=== PATIENT | female | born 1945 | race Caucasian/White ===

== ENCOUNTER 2019-03-31 10:47 | Inpatient (IN) ==
--- NOTE | 2019-03-25 10:07 | EKG Report ---
Test Performed on : 03/25/2019 10:01:43 AM Test Reason : PAT Blood Pressure : / mmHG Vent. Rate : 069 BPM Atrial Rate : 069 BPM P-R Int : 184 ms QRS Dur : 094 ms QT Int : 408 ms P-R-T Axes : 066 077 069 degrees QTc Int : 437 ms Normal sinus rhythm. Normal ECG No previous ECGs available Unconfirmed Result
[2019-03-25 10:20] LABS: HEMATOCRIT 38.4 % (37.0-47.0); MCH 28.5 PG (27-31); MCHC 31.3 g/dL (33-37); MCV 91.2 FL (81-99); MPV 10.4 FL (7.4-10.4); RBC 4.21 XMIL (4.2-5.4); RDW 13.5 % (11.5-14.5); WBC 9.06 X1000 (4.8-10.8)
[2019-03-25 11:13] LABS: AGAP 8; BUN 13 mg/dL (8-22); CALCIUM 9.1 mg/dL (8.8-10.2); CHLORIDE 103 mmol/L (98-107); COSMO 277; CREATININE 0.9 mg/dL (0.5-0.9); ESTIMATED GFR > 60; GLUCOSE 93 mg/dL (70-104); POTASSIUM 4.8 mmol/L (3.5-5.1); SODIUM 139 mmol/L (136-145); TCO2 28 mmol/L (25-35)
[2019-03-31] MEDS ORDERED: PEPCID ONE (11:16)
[2019-03-31] MEDS ORDERED: REGLAN ONE (11:16)
[2019-03-31] MEDS ORDERED: KEFZOL 1 GM/D5W 1 GM/50 ML IVPB ONE (11:16)
[2019-03-31] MEDS ORDERED: LR 1,000 ML ONE ×2 (11:16→12:26)
[2019-03-31] MEDS ORDERED: XYLOCAINE 1%/EPI 1:100,000 ONE (12:25)
[2019-03-31] MEDS ORDERED: ROBINUL ONE ×3 (12:28→14:02)
[2019-03-31] MEDS ORDERED: QUELICIN (DOSE) ONE (12:28)
[2019-03-31] MEDS ORDERED: DIPRIVAN 1% ONE (12:29)
[2019-03-31] MEDS ORDERED: FENTANYL ONE (12:29)
[2019-03-31] MEDS ORDERED: XYLOCAINE-MPF 2% ONE (12:31)
[2019-03-31] MEDS ORDERED: ZEMURON ONE (12:56)
[2019-03-31] MEDS ORDERED: NEO-SYNEPHRINE ONE (13:07)
[2019-03-31] MEDS ORDERED: STERILE WATER INJ. ONE ×3 (13:07→13:34)
[2019-03-31] MEDS ORDERED: EPHEDRINE ONE (13:34)
[2019-03-31 13:40] LABS: URINE SOURCE CATH
[2019-03-31 13:49] LABS: BILIRUBIN URINE NEGATIVE (NEGATIVE); BLOOD URINE NEGATIVE (NEGATIVE); COLOR YELLOW; GLUCOSE URINE NEGATIVE (NEGATIVE); KETONE URINE NEGATIVE (NEGATIVE); LEUKOCYTES URINE SMALL (NEGATIVE); NITRITE URINE NEGATIVE (NEGATIVE); PH URINE 5.5; PROTEIN URINE NEGATIVE (NEGATIVE); SP GRAVITY URINE 1.025; TURBIDITY URINE HAZY (CLEAR); UR EPITHELIAL CELLS >10 /HPF (<10); URINE BACTERIA 1+ /HPF; URINE RBC <10 /HPF (<10); UROBILINOGEN URINE NORMAL (NORMAL)
[2019-03-31] MEDS ORDERED: ZOFRAN ONE (14:02)
[2019-03-31] MEDS ORDERED: DECADRON ONE (14:02)
[2019-03-31] MEDS ORDERED: NEOSTIGMINE ONE (14:02)
--- NOTE | 2019-03-31 14:53 | Diag Imaging Result Doc PS360 ---
EXAM: CHEST-PORTABLE HISTORY: post lap shalini TECHNIQUE: Portable chest COMPARISON: None. FINDINGS: There is a tiny right-sided pneumothorax. Atelectasis and infiltrates are found in the left base with a tiny left effusion. The heart is mildly enlarged. IMPRESSION: Left basilar infiltrates with a tiny right pneumothorax. Electronically signed by Michael Krishnamurthy 03/31/2019 2:50 PM
[2019-03-31] MEDS: DILAUDID ONE ×2 (14:56→15:00)
[2019-03-31] MEDS ORDERED: NS 1,000 ML ONE (15:12)
[2019-03-31] MEDS ORDERED: ZOFRAN IV PRN (15:37)
[2019-03-31] MEDS: NS 1,000 ML IV SCH (15:43)
--- NOTE | 2019-03-31 20:16 | OPERATIVE NOTE ---
PROCEDURE DATE: 03/31/2019 PROCEDURE PERFORMED: Laparoscopic Froilan fundoplication. SURGEON: Kingsley Russell MD ASSISTANTS: Rocio and Raz. PREOPERATIVE DIAGNOSES: 1. History of hiatal hernia. 2. Gastroesophageal reflux disease. 3. Esophageal diverticulum. POSTOPERATIVE DIAGNOSES: 1. History of hiatal hernia. 2. Gastroesophageal reflux disease. 3. Esophageal diverticulum. DESCRIPTION OF PROCEDURE: After satisfactory general endotracheal anesthesia was achieved, the patient was placed in stirrups. The bed had been turned around so that the patient could sit on the headboard. The abdomen was prepped and draped in a sterile fashion. We measured 15 cm below the xiphoid. We anesthetized the skin vertically. This was just above the umbilicus and made a vertical incision, dissected down the fascia. Scored the fascia, introduced the 11 trocar, Optiview technique. We insufflated through this trocar under direct visualization and introduced an 11 trocar in the left mid abdomen. We then made a small stab incision in the right upper quadrant and introduced the medium retractor for the Kenny placed it under the left lobe of the liver and then placed the patient in reverse Trendelenburg. This held the left lobe of the liver up so that we could identify and visualize the hiatus satisfactorily. Then under direct visualization, used an 11 trocar in the midepigastrium and an 11 trocar in the left upper quadrant. We used a Dani to pull the stomach out of the mediastinum. We then used the LigaSure to divide the gastrohepatic ligament all the way to the right ricky. We dissected down to the inferior-most aspect of the right ricky. We then began dissecting the hernia sac out of the mediastinum by pulling the hernia sac with my right hand and used the LigaSure on the left hand and continued to dissect the hernia sac out of the mediastinum from right to left. When we got to the midline, we turned our attention the greater curve, lifted up the omentum off the greater curve, and then used the LigaSure along the greater curve all the way up to the cardia. We then dissected the tissue behind the esophagus and stomach, and then again began dissecting the hernia sac out of the mediastinum from left to right. We left the hernia sac attached to the proximal stomach around the cardia. We exposed the esophagus. I could not say for certain where the esophageal diverticulum was, but it was felt to be near the EG junction and I felt that it was pulled down with the hernia sac. The small Cook catheter had already been placed as well as the large Cook catheter had been placed in the mid esophagus. I then asked them to advanced the small Cook catheter into the stomach, and we identified the small Cook catheter. Then, they advanced the large one, the 53 bougie. This then allowed us to gauge the size of the new hiatus. After we identified the size of the new hiatus, we then pulled the large bougie back into the mid esophagus. We then placed a 0 silk endo-stitch followed by 0 Surgidac endostitches, and we used about 4 those to close the crura posteriorly. The window behind the esophagogastric junction was adequate so I passed the reticulating grasper around behind the esophagus. Once again, we advanced the large bougie into the stomach. I then grasped the greater curve of the stomach and delivered it around the distal esophagus. We then used a 0 silk endostitch from the anterior stomach to the esophagus to the wrapped stomach high stitch. We then removed the large bougie. We added an additional 0 silk stitch 2 cm caudad to the first stitch. We then placed 1 Surgidac stitch between those 2. I then used a 0 silk stitch to approximate the wrapped stomach to the posterior crura, another one, the anterior wrap to the diaphragm. I then placed one additional 0 silk stitch to close the anterior diaphragm to the right ricky. This then completely approximated the hiatus to the appropriate size. The wrap was adequately loose. After the large bougie was removed, it was adequately floppy, not too tight. The small Cook catheter and the large bougie were completely removed from the patient's mouth. Hemostasis was satisfactory. I was pleased with our result. We then relaxed the retractor under the left lobe of the liver and allowed the left lobe to fall down on to the operative area. We removed the medium retractor. We then flattened the patient. We used a Reid-Thomasen at each of the 11 trocar sites to close the holes in the abdominal wall. We added an additional 2-0 Polysorb stitch under direct visualization to the supraumbilical incision. We then closed the skin at each incision with 4-0 Polysorb subcuticular stitches. Sterile OpSites were applied. She tolerated it well and was sent to the recovery room in satisfactory condition. cc: MD Froy Grimaldo MD Faye Wilson, MD MTDD
[2019-03-31] MEDS: KEFZOL 1 GM/D5W 1 GM/50 ML IVPB IV SCH (20:24)
[2019-03-31] MEDS: DILAUDID IV PRN (20:59)
[2019-04-01] MEDS: KEFZOL 1 GM/D5W 1 GM/50 ML IVPB IV SCH ×3 (03:49→20:58)
[2019-04-01] MEDS: DILAUDID IV PRN ×2 (03:49→08:41)
[2019-04-01] MEDS: NS 1,000 ML IV SCH (04:04)
[2019-04-01 06:43] LABS: BASO# 0.02 X1000 (0.0-0.2); BASO% 0.2 % (0.0-0.8); EOS# 0.01 X1000 (0.0-0.7); EOS% 0.1 % (0.0-10.0); HEMATOCRIT 35.7 % (37.0-47.0); IMM GRAN# 0.02 X1000 (0.0-0.04); IMM GRAN% 0.2 % (0.0-0.5); LYMPH# 2.01 X1000 (1.2-3.4); LYMPH% 15.3 % (20.5-51.1); MCHC 30.8 g/dL (33-37); MCV 90.8 FL (81-99); MONO% 6.9 % (1.7-9.3); MPV 10.4 FL (7.4-10.4); NEUT# 10.17 X1000 (1.4-6.5); NEUT% 77.3 % (42.2-75.2); PLT 292 X1000 (130-400); RBC 3.93 XMIL (4.2-5.4); RDW 13.2 % (11.5-14.5); WBC 13.13 X1000 (4.8-10.8)
[2019-04-01] MEDS: PERIDEX MT SCH ×2 (08:42→20:58)
[2019-04-01] MEDS ORDERED: NS 1,000 ML IV SCH (09:36)
--- NOTE | 2019-04-01 12:22 | Diag Imaging Result Doc PS360 ---
EXAM: CHEST-PORTABLE 04/01/2019 HISTORY: left chest pain TECHNIQUE: AP portable at 1211 COMMENT: There is ill-defined opacity in the lung bases bilaterally which has worsened on the right but somewhat improved on the left since the previous study of 03/31/2019. There is a small residual right pneumothorax. This is smaller than on the previous study. IMPRESSION: Improved atelectasis and/or pneumonia on the left. Worsened atelectasis in the right base. Improved right pneumothorax. Electronically signed by Fabrice Bauer 04/01/2019 12:20 PM
[2019-04-01] MEDS: NORCO-10 PO PRN ×2 (13:47→20:58)
--- NOTE | 2019-04-01 15:01 | GENERAL SURGERY PROGRESS NOTE ---
DATE: 04/01/2019 Ms. Vegas is postop day 1 after a laparoscopic Froilan fundoplication. She is afebrile, heart rate 77, blood pressure 118/41. She swallows satisfactorily. She has epigastric pain as expected. The plan is to give her clear liquids today. Will take her Hyman out, and decide when we can discharge her in the next 24 hours. cc: Kingsley Russell MD
[2019-04-02] MEDS: NORCO-10 PO PRN (02:00)
[2019-04-02] MEDS: KEFZOL 1 GM/D5W 1 GM/50 ML IVPB IV SCH (03:22)
[2019-04-02 06:50] LABS: BASO# 0.02 X1000 (0.0-0.2); BASO% 0.2 % (0.0-0.8); EOS# 0.06 X1000 (0.0-0.7); EOS% 0.5 % (0.0-10.0); HEMATOCRIT 35.5 % (37.0-47.0); HEMOGLOBIN 11.1 g/dL (12.0-16.0); LYMPH# 1.86 X1000 (1.2-3.4); MCH 28.5 PG (27-31); MCHC 31.3 g/dL (33-37); MCV 91.3 FL (81-99); MONO% 8.2 % (1.7-9.3); MPV 10.5 FL (7.4-10.4); NEUT# 8.12 X1000 (1.4-6.5); NEUT% 74.1 % (42.2-75.2); PLT 277 X1000 (130-400); RBC 3.89 XMIL (4.2-5.4); RDW 13.3 % (11.5-14.5); WBC 10.96 X1000 (4.8-10.8)
--- NOTE | 2019-04-02 09:42 | Diag Imaging Result Doc PS360 ---
BA SWALLOW-ESOPHAGUS - 04/02/2019 INDICATION: post shalini TECHNIQUE: COMPARISON: 11/27/2018 FINDINGS: There is a stable large esophageal diverticulum in the midthoracic esophagus. There is extremely severe tertiary wave formation all throughout swallowing. However the the esophagus does clear appropriately. No evidence of obstruction. No leak or perforation. No visible gastroesophageal reflux. IMPRESSION: No complication. Electronically signed by Jean Sosa 04/02/2019 9:40 AM
[2019-04-02] MEDS: PERIDEX MT SCH (10:36)
[2019-04-02 11:48] VITALS: BP 149/85
--- NOTE | 2019-04-02 15:31 | GENERAL SURGERY PROGRESS NOTE ---
DATE: 04/02/2019 SUBJECTIVE: Ms. Vegas was doing generally well. Her swallow looked okay today. She is afebrile, heart rate 76, blood pressure 153/59. PLAN: The plan is to let her go home today. I have discussed chewing her food well, eating slowly, progressing in her activity. Should return to see me in the office in a week. Her white count is 10,900 today, hemoglobin 11. cc: Kingsley Russell MD
== END 2019-04-02 12:40 | disposition home or self-care (01) | DRG 328 ==
LOC: SURHOLD 10:47 → OR 10:47 → OBSVTOIN 13:46 → 4N 14:03
PROVIDERS: ADMIT Surgery; ATTEND Surgery